=== PATIENT | female | born 2000 | race Caucasian/White ===

== ENCOUNTER → 2022-09-29 | Outpatient (CLI) | payer OTHER, BC ==
[~2022-09-29] MED LIST: ALBU90OI; AZIT100SU; PRED20 PO; [UNRECOGNIZED DRUG - OTHER]
== END | disposition home or self-care (01) ==
LOC: LAB SHORT 13:00 → LAB 13:00
DX: R30.0 Dysuria (principal)
CPT/HCPCS: 87077; 87086; 87186

== ENCOUNTER → 2023-06-28 | Outpatient (CLI) | payer OTHER, BC | LOC: LAB 11:10 → LAB SHORT 11:10 | DX: R30.0 Dysuria (principal); R35.0 Frequency of micturition | CPT/HCPCS: 87077; 87086; 87186 ==

== ENCOUNTER → 2023-09-06 | Outpatient (CLI) | payer OTHER, BC ==
[2023-09-09 22:38] LABS: APTIMA MEDIA TYPE Unisex Swab; C. TRACHOMATIS BY TMA Negative (Negative); N. GONORRHOEAE BY TMA Negative (Negative); SPECIMEN SOURCE Throat
== END ==
LOC: LAB SHORT 12:48 → LAB 12:48
PROVIDERS: Physician Assistant
DX: J03.90 Acute tonsillitis, unspecified (principal); N72 Inflammatory disease of cervix uteri; N76.89 Other specified inflammation of vagina and vulva
CPT/HCPCS: 87491; 87591

== ENCOUNTER → 2023-09-27 | Outpatient (CLI) | payer OTHER, BC | END | disposition home or self-care (01) | LOC: LAB SHORT 10:01 | DX: R30.0 Dysuria (principal); R35.0 Frequency of micturition; R31.9 Hematuria, unspecified | CPT/HCPCS: 87077; 87086; 87186 ==

== ENCOUNTER → 2024-05-04 | Outpatient (CLI) | payer OTHER, BC | END | disposition home or self-care (01) | LOC: LAB SHORT 18:51 | DX: R30.0 Dysuria (principal) | CPT/HCPCS: 87086 ==

== ENCOUNTER → 2024-05-17 | Outpatient (CLI) | payer OTHER | LOC: LAB 17:01 → LAB SHORT 17:01 | DX: R30.0 Dysuria (principal) | CPT/HCPCS: 87086 ==

== ENCOUNTER → 2024-07-02 | Outpatient (CLI) | payer OTHER | END | disposition home or self-care (01) | LOC: LAB 19:19 → LAB SHORT 19:19 | DX: R30.0 Dysuria (principal) | CPT/HCPCS: 87086 ==